=== PATIENT | male | born 1935 | race Two or more races ===

== ENCOUNTER 2017-06-17 10:53 | Outpatient (CLI) | payer OTHER ==
[~2017-06-17 10:53] MED LIST: ADVIL100 M1; BACLOFEN10 MG; CATAFLAM50 MG PO; DICLOFENAC POTA50 MG; DIPROSONE CR.45 GM TP; MEDROLPACK PO; NEURONTIN300 MG; NEURONTIN300 MG PO; ORPH100T PO; PREDNISOLO15 MG/5 ML PO; SEPTRA DS TABLE1 TAB PO; SKELAXIN800 MG PO; TIZANIDINE HCL4 MG
== END 2017-06-17 11:06 | disposition home or self-care (01) ==
LOC: MRI 10:53
DX: I63.9 Cerebral infarction, unspecified (principal)
CPT/HCPCS: 70552; A9579

== ENCOUNTER 2017-06-20 14:10 | Outpatient (CLI) | payer OTHER | END 2017-06-20 14:17 | disposition home or self-care (01) | LOC: NUCLEAR 14:10 | DX: M81.0 Age-related osteoporosis without current pathological fracture (principal) ==

== ENCOUNTER → 2017-07-05 | Emergency (ER) | payer OTHER ==
[~2017-07-05] VITALS: Ht 170.2 cm; Wt 73.5 kg
== END | disposition left against medical advice (07) ==
LOC: ER 20:23
DX: Z53.20 Procedure and treatment not carried out because of patient's decision for unspecified reasons (principal)

== ENCOUNTER 2017-08-01 13:30 | Outpatient (CLI) | payer OTHER | END 2017-08-01 13:44 | disposition home or self-care (01) | LOC: RAD 13:30 | DX: M54.2 Cervicalgia (principal); M15.0 Primary generalized (osteo)arthritis; M16.0 Bilateral primary osteoarthritis of hip; M54.5 Low back pain | CPT/HCPCS: 72141 ==

== ENCOUNTER 2017-08-07 19:25 | Emergency (ER) | payer OTHER ==
[~2017-08-07] VITALS: Ht 162.6 cm; Wt 63.5 kg
[2017-08-07] MEDS ORDERED: LISINOPRIL10 MG (19:47)
== END 2017-08-07 20:58 | disposition home or self-care (01) ==
LOC: ER 19:25
DX: R10.13 Epigastric pain (principal)

== ENCOUNTER 2017-08-27 14:05 | Inpatient (IN) | payer OTHER ==
[~2017-08-27] VITALS: Ht 170.2 cm; Wt 74.8 kg
[~2017-08-27 14:05] MED LIST changes: +LISINOPRIL10 MG
[2017-08-27] MEDS ORDERED: NEURONTIN300 MG PO (15:06)
[2017-09-01] MEDS ORDERED: LEVAQUIN750 MG PO (09:32)
[2017-09-01] MEDS ORDERED: XOPENEX0.63 MG/3 IH (09:34)
== END 2017-09-01 13:37 | DRG 195 ==
LOC: ER 14:05 → SEC-K 08-28 09:23 → MEDJ 08-28 09:23 → SEC-K 08-28 10:53 → MEDJ 08-28 14:29
PROC: 3E0F7GC Introduction of Other Therapeutic Substance into Respiratory Tract, Via Natural or Artificial Opening (ICD-10-PCS; principal; 2017-08-28)
DX: J18.0 Bronchopneumonia, unspecified organism (principal); D69.59 Other secondary thrombocytopenia; M54.12 Radiculopathy, cervical region; I95.89 Other hypotension; N18.1 Chronic kidney disease, stage 1

== ENCOUNTER 2017-10-01 13:08 | Emergency (ER) | payer OTHER ==
[~2017-10-01] VITALS: Ht 160 cm; Wt 72.6 kg
[~2017-10-01 13:08] MED LIST changes: +LEVAQUIN750 MG PO; +XOPENEX0.63 MG/3 IH
== END 2017-10-01 16:49 | disposition home or self-care (01) ==
LOC: ER 13:08
DX: S50.11XA Contusion of right forearm, initial encounter (principal); S50.12XA Contusion of left forearm, initial encounter; D69.49 Other primary thrombocytopenia; W22.8XXA Striking against or struck by other objects, initial encounter; Y93.89 Activity, other specified; Y92.89 Other specified places as the place of occurrence of the external cause; Y99.8 Other external cause status

== ENCOUNTER 2017-10-31 15:23 | Emergency (ER) | payer OTHER ==
[~2017-10-31] VITALS: Ht 165.1 cm; Wt 72.6 kg
== END 2017-10-31 16:56 | disposition home or self-care (01) ==
LOC: ER 15:23
DX: G62.9 Polyneuropathy, unspecified (principal); M47.896 Other spondylosis, lumbar region; M47.892 Other spondylosis, cervical region

== ENCOUNTER → 2017-11-28 | Outpatient (CLI) | payer OTHER | END | disposition home or self-care (01) | LOC: LAB 14:44 | DX: N40.1 Benign prostatic hyperplasia with lower urinary tract symptoms (principal); N52.8 Other male erectile dysfunction ==

== ENCOUNTER 2018-01-03 14:13 | Emergency (ER) | payer OTHER ==
[~2018-01-03] VITALS: Ht 167.6 cm; Wt 72.6 kg
[2018-01-03] MEDS ORDERED: ORPHENADRINE C100 MG PO (17:18)
[2018-01-03] MEDS ORDERED: KETO10TA2 PO (17:18)
== END 2018-01-03 17:38 | disposition home or self-care (01) ==
LOC: ER 14:13
DX: M50.33 Other cervical disc degeneration, cervicothoracic region (principal); M54.89 Other dorsalgia

== ENCOUNTER 2018-06-13 14:11 | Emergency (ER) | payer OTHER ==
[~2018-06-13] VITALS: Ht 165.1 cm; Wt 77.1 kg
[~2018-06-13 14:11] MED LIST changes: +KETO10TA2 PO; +ORPHENADRINE C100 MG PO
[2018-06-13] MEDS ORDERED: ALTACE5 MG (15:26)
== END 2018-06-13 17:18 | disposition home or self-care (01) ==
LOC: ER 14:11
DX: G89.21 Chronic pain due to trauma (principal); M54.2 Cervicalgia; M54.5 Low back pain; F45.42 Pain disorder with related psychological factors

== ENCOUNTER → 2018-07-08 | Emergency (ER) | payer OTHER ==
[~2018-07-08] VITALS: Ht 167.6 cm; Wt 74.8 kg
[~2018-07-08] MED LIST changes: +ALTACE5 MG
== END | disposition home or self-care (01) ==
LOC: ER 20:23
DX: M54.5 Low back pain (principal)

== ENCOUNTER 2018-07-21 11:30 | Emergency (ER) | payer OTHER ==
[~2018-07-21] VITALS: Ht 167.6 cm; Wt 74.8 kg
== END 2018-07-21 16:15 | disposition home or self-care (01) ==
LOC: ER 11:30
DX: B34.9 Viral infection, unspecified (principal)

== ENCOUNTER 2018-07-23 18:10 | Emergency (ER) | payer OTHER ==
[~2018-07-23] VITALS: Ht 167.6 cm; Wt 75.7 kg
== END 2018-07-23 18:58 | disposition home or self-care (01) ==
LOC: ER 18:10
DX: B34.9 Viral infection, unspecified (principal)

== ENCOUNTER 2018-07-26 16:24 | Emergency (ER) | payer OTHER ==
[~2018-07-26] VITALS: Ht 167.6 cm; Wt 72.6 kg
== END 2018-07-26 20:29 | disposition home or self-care (01) ==
LOC: ER 16:24
DX: D64.89 Other specified anemias (principal); D69.49 Other primary thrombocytopenia; M54.2 Cervicalgia

== ENCOUNTER 2018-08-01 12:57 | Emergency (ER) | payer OTHER ==
[~2018-08-01] VITALS: Ht 167.6 cm; Wt 72.6 kg
== END 2018-08-01 15:52 | disposition home or self-care (01) ==
LOC: ER 12:57
DX: B34.9 Viral infection, unspecified (principal)

== ENCOUNTER → 2018-08-10 | Emergency (ER) | payer OTHER ==
[~2018-08-10] VITALS: Ht 167.6 cm; Wt 77.1 kg
== END | disposition left against medical advice (07) ==
LOC: ER 18:18
DX: R05 Cough (principal)

== ENCOUNTER → 2018-08-10 | Emergency (ER) | payer OTHER ==
[~2018-08-10] VITALS: Ht 162.6 cm; Wt 77.1 kg
== END | disposition left against medical advice (07) ==
LOC: ER 14:01
DX: Z53.20 Procedure and treatment not carried out because of patient's decision for unspecified reasons (principal)

== ENCOUNTER 2018-08-12 16:35 | Emergency (ER) | payer OTHER ==
[~2018-08-12] VITALS: Ht 167.6 cm; Wt 72.6 kg
== END 2018-08-12 21:21 | disposition home or self-care (01) ==
LOC: ER 16:35
DX: J06.9 Acute upper respiratory infection, unspecified (principal)

== ENCOUNTER 2018-08-30 17:18 | Emergency (ER) | payer OTHER ==
[~2018-08-30] VITALS: Ht 167.6 cm; Wt 74.8 kg
== END 2018-08-30 20:09 | disposition home or self-care (01) ==
LOC: ER 17:18
DX: R53.81 Other malaise (principal)

== ENCOUNTER 2018-09-10 19:19 | Emergency (ER) | payer OTHER ==
[~2018-09-10] VITALS: Ht 167.6 cm; Wt 74.8 kg
== END 2018-09-11 00:10 | disposition home or self-care (01) ==
LOC: ER 19:19
DX: M13.862 Other specified arthritis, left knee (principal); M13.841 Other specified arthritis, right hand

== ENCOUNTER 2019-03-31 15:32 | Emergency (ER) | payer OTHER ==
[~2019-03-31] VITALS: Ht 167.6 cm; Wt 72.6 kg
[2019-03-31] MEDS ORDERED: CIDAFLEX TABLE1 EACH (15:43)
== END 2019-03-31 17:49 | disposition home or self-care (01) ==
LOC: ER 15:32
DX: M54.2 Cervicalgia (principal); M25.511 Pain in right shoulder; M25.512 Pain in left shoulder

== ENCOUNTER 2019-04-10 14:07 | Emergency (ER) | payer OTHER ==
[~2019-04-10] VITALS: Ht 167.6 cm; Wt 73.5 kg
[~2019-04-10 14:07] MED LIST changes: +CIDAFLEX TABLE1 EACH
== END 2019-04-10 16:20 | disposition home or self-care (01) ==
LOC: ER 14:07
DX: M54.2 Cervicalgia (principal); M62.838 Other muscle spasm

== ENCOUNTER 2019-07-15 16:03 | Emergency (ER) | payer OTHER ==
[~2019-07-15] VITALS: Ht 154.9 cm; Wt 72.6 kg
[~2019-07-15 16:03] MED LIST changes: +CEROVITE JR1 EACH; +TUSSIN15 MG/5 ML
== END 2019-07-15 17:01 | disposition home or self-care (01) ==
LOC: ER 16:03
DX: M12.88 Other specific arthropathies, not elsewhere classified, other specified site (principal); M54.2 Cervicalgia

== ENCOUNTER 2019-07-17 12:27 | Emergency (ER) | payer OTHER ==
[~2019-07-17] VITALS: Ht 167.6 cm; Wt 72.6 kg
[2019-07-17] MEDS ORDERED: NORFLEX100MG PO (13:03)
[2019-07-17] MEDS ORDERED: RAMIPRIL5 MG PO (13:03)
[2019-07-17] MEDS ORDERED: MELOXICAM7.5 MG PO (13:03)
[2019-07-17] MEDS ORDERED: GABAPENTIN600 MG PO (13:04)
[2019-07-17] MEDS ORDERED: KETOROLAC TROME10 MG PO (13:04)
[2019-07-17] MEDS ORDERED: NAPROXEN500 MG PO (13:04)
== END 2019-07-17 13:33 | disposition home or self-care (01) ==
LOC: ER 12:27
DX: M79.18 Myalgia, other site (principal)

== ENCOUNTER 2019-07-31 15:50 | Emergency (ER) | payer OTHER ==
[~2019-07-31] VITALS: Ht 167.6 cm; Wt 68.0 kg
[~2019-07-31 15:50] MED LIST changes: +GABAPENTIN600 MG PO; +KETOROLAC TROME10 MG PO; +MELOXICAM7.5 MG PO; +NAPROXEN500 MG PO; +NORFLEX100MG PO; +RAMIPRIL5 MG PO
== END 2019-07-31 20:01 | disposition home or self-care (01) ==
LOC: ER 15:50
DX: M54.12 Radiculopathy, cervical region (principal); M54.2 Cervicalgia

== ENCOUNTER 2019-08-11 15:55 | Emergency (ER) | payer OTHER ==
[~2019-08-11] VITALS: Ht 152.4 cm; Wt 72.6 kg
== END 2019-08-11 19:44 | disposition home or self-care (01) ==
LOC: ER 15:55
DX: M47.22 Other spondylosis with radiculopathy, cervical region (principal)

== ENCOUNTER 2019-08-12 17:08 | Emergency (ER) | payer OTHER ==
[~2019-08-12] VITALS: Ht 167.6 cm; Wt 72.6 kg
== END 2019-08-12 18:46 | disposition home or self-care (01) ==
LOC: ER 17:08
DX: R20.0 Anesthesia of skin (principal)

== ENCOUNTER 2019-09-11 14:44 | Emergency (ER) | payer OTHER ==
[~2019-09-11] VITALS: Ht 167.6 cm; Wt 72.6 kg
[2019-09-11] MEDS ORDERED: TAMSULOSIN HCL0.4 MG PO (15:17)
[2019-09-11] MEDS ORDERED: AZELASTINE137 MCG/0. NASAL (15:17)
== END 2019-09-11 17:15 | disposition home or self-care (01) ==
LOC: ER 14:44
DX: M54.2 Cervicalgia (principal); M54.5 Low back pain; M62.838 Other muscle spasm

== ENCOUNTER 2019-09-23 16:33 | Emergency (ER) | payer OTHER ==
[~2019-09-23] VITALS: Ht 167.6 cm; Wt 72.6 kg
[~2019-09-23 16:33] MED LIST changes: +AZELASTINE137 MCG/0. NASAL; +TAMSULOSIN HCL0.4 MG PO
[2019-09-23] MEDS ORDERED: VITAMIN D32400 UNIT/ MC (17:08)
[2019-09-23] MEDS ORDERED: NEURONTIN300 MG PO (17:08)
== END 2019-09-23 20:30 | disposition home or self-care (01) ==
LOC: ER 16:33
DX: M54.12 Radiculopathy, cervical region (principal); M47.892 Other spondylosis, cervical region

== ENCOUNTER 2019-09-28 12:02 | Emergency (ER) | payer OTHER ==
[~2019-09-28] VITALS: Ht 167.6 cm; Wt 72.6 kg
[~2019-09-28 12:02] MED LIST changes: +VITAMIN D32400 UNIT/ MC
== END 2019-09-28 13:10 | disposition home or self-care (01) ==
LOC: ER 12:02
DX: M89.48 Other hypertrophic osteoarthropathy, other site (principal)

== ENCOUNTER 2019-11-14 15:54 | Emergency (ER) | payer OTHER ==
[~2019-11-14] VITALS: Ht 167.6 cm; Wt 74.8 kg
== END 2019-11-14 18:26 | disposition home or self-care (01) ==
LOC: ER 15:54
DX: M50.323 Other cervical disc degeneration at C6-C7 level (principal)

== ENCOUNTER 2019-11-18 14:24 | Emergency (ER) | payer OTHER ==
[~2019-11-18] VITALS: Ht 170.2 cm; Wt 72.6 kg
[2019-11-18] MEDS ORDERED: 8 HOUR PAIN RE650 M1 PO (17:23)
[2019-11-18] MEDS ORDERED: HORIZANT300 MG PO (17:23)
[2019-11-18] MEDS ORDERED: ORPHENADRINE C100 MG PO (17:31)
== END 2019-11-18 17:56 | disposition home or self-care (01) ==
LOC: ER 14:24
DX: M54.89 Other dorsalgia (principal)

== ENCOUNTER 2019-12-07 15:17 | Outpatient (CLI) | payer OTHER ==
[~2019-12-07 15:17] MED LIST changes: +8 HOUR PAIN RE650 M1 PO; +HORIZANT300 MG PO
== END 2019-12-07 15:26 | disposition home or self-care (01) ==
LOC: RAD 15:17
PROVIDERS: ATTEND Orthopaedic Surgery
DX: M54.2 Cervicalgia (principal); M54.5 Low back pain

== ENCOUNTER 2019-12-23 21:58 | Emergency (ER) | payer OTHER ==
[~2019-12-23] VITALS: Ht 167.6 cm; Wt 72.6 kg
[2019-12-23] MEDS ORDERED: GABAPENTIN100 M2 PO (22:16)
[2019-12-23] MEDS ORDERED: TIZANIDINE HCL4 MG PO (22:16)
== END 2019-12-23 22:51 | disposition home or self-care (01) ==
LOC: ER 21:58
DX: M54.2 Cervicalgia (principal)

== ENCOUNTER 2019-12-26 14:36 | Emergency (ER) | payer OTHER ==
[~2019-12-26] VITALS: Ht 167.6 cm; Wt 72.6 kg
[~2019-12-26 14:36] MED LIST changes: +GABAPENTIN100 M2 PO; +TIZANIDINE HCL4 MG PO
== END 2019-12-26 20:55 | disposition home or self-care (01) ==
LOC: ER 14:36
DX: J06.9 Acute upper respiratory infection, unspecified (principal); Z03.818 Encounter for observation for suspected exposure to other biological agents ruled out; R05 Cough

== ENCOUNTER 2020-01-09 15:52 | Emergency (ER) | payer OTHER ==
[~2020-01-09] VITALS: Ht 162.6 cm; Wt 75.7 kg
[2020-01-09] MEDS ORDERED: 8 HOUR650 MG PO (18:06)
[2020-01-09] MEDS ORDERED: HORIZANT300 MG PO (18:06)
== END 2020-01-09 18:18 | disposition home or self-care (01) ==
LOC: ER 15:52
DX: M54.12 Radiculopathy, cervical region (principal)

== ENCOUNTER 2020-02-11 16:23 | Emergency (ER) | payer OTHER ==
[~2020-02-11] VITALS: Ht 167.6 cm; Wt 81.6 kg
[~2020-02-11 16:23] MED LIST changes: +8 HOUR650 MG PO
== END 2020-02-11 17:49 | disposition home or self-care (01) ==
LOC: ER 16:23
DX: M41.87 Other forms of scoliosis, lumbosacral region (principal); M13.88 Other specified arthritis, other site; M25.552 Pain in left hip

== ENCOUNTER 2020-04-10 15:42 | Outpatient (CLI) | payer OTHER | END 2020-04-10 15:49 | disposition home or self-care (01) | LOC: LAB 15:42 | PROVIDERS: ATTEND Specialist | DX: I70.0 Atherosclerosis of aorta (principal); E11.65 Type 2 diabetes mellitus with hyperglycemia; N39.0 Urinary tract infection, site not specified; E03.8 Other specified hypothyroidism; D51.0 Vitamin B12 deficiency anemia due to intrinsic factor deficiency; E78.2 Mixed hyperlipidemia; Z12.11 Encounter for screening for malignant neoplasm of colon; D64.89 Other specified anemias; D68.8 Other specified coagulation defects; N40.1 Benign prostatic hyperplasia with lower urinary tract symptoms; J45.998 Other asthma; I10 Essential (primary) hypertension ==

== ENCOUNTER 2020-04-16 16:01 | Emergency (ER) | payer OTHER ==
[~2020-04-16] VITALS: Ht 165.1 cm; Wt 71.2 kg
== END 2020-04-16 17:52 | disposition home or self-care (01) ==
LOC: ER 16:01
DX: M62.830 Muscle spasm of back (principal); M54.5 Low back pain

== ENCOUNTER 2020-05-18 17:47 | Emergency (ER) | payer OTHER ==
[~2020-05-18] VITALS: Ht 162.6 cm; Wt 72.6 kg
== END 2020-05-18 20:38 | disposition home or self-care (01) ==
LOC: ER 17:47
DX: M54.2 Cervicalgia (principal); M62.830 Muscle spasm of back

== ENCOUNTER 2020-06-11 18:49 | Emergency (ER) | payer OTHER ==
[~2020-06-11] VITALS: Ht 160 cm; Wt 68.0 kg
[2020-06-11] MEDS ORDERED: NEURONTIN300 MG (19:13)
[2020-06-11] MEDS ORDERED: MECLIZINE HCL25 MG PO (19:14)
== END 2020-06-11 20:46 | disposition home or self-care (01) ==
LOC: ER 18:49
DX: M54.2 Cervicalgia (principal); M25.512 Pain in left shoulder; M25.511 Pain in right shoulder; M62.838 Other muscle spasm; M62.830 Muscle spasm of back

== ENCOUNTER → 2020-06-23 16:57 | Outpatient (CLI) | payer OTHER ==
[~2020-06-23 16:57] MED LIST changes: +MECLIZINE HCL25 MG PO
== END | disposition home or self-care (01) ==
LOC: RAD 16:57
PROVIDERS: ATTEND Physical Medicine & Rehabilitation
DX: M54.5 Low back pain (principal); M54.2 Cervicalgia

== ENCOUNTER 2020-06-30 16:34 | Emergency (ER) | payer OTHER ==
[~2020-06-30] VITALS: Ht 170.2 cm; Wt 77.1 kg
[2020-06-30] MEDS ORDERED: ALTACE5 MG (16:57)
== END 2020-06-30 20:54 | disposition home or self-care (01) ==
LOC: ER 16:34
DX: M41.86 Other forms of scoliosis, lumbar region (principal); M41.82 Other forms of scoliosis, cervical region

== ENCOUNTER 2020-07-09 13:57 | Emergency (ER) | payer OTHER ==
[~2020-07-09] VITALS: Ht 175.3 cm; Wt 74.8 kg
[2020-07-09] MEDS ORDERED: ORPHENADRINE C100 MG PO (18:17)
[2020-07-09] MEDS ORDERED: KETO10TA2 PO (18:17)
== END 2020-07-09 18:35 | disposition home or self-care (01) ==
LOC: ER 13:57
DX: M54.2 Cervicalgia (principal); M62.838 Other muscle spasm

== ENCOUNTER 2020-07-23 14:04 | Emergency (ER) | payer OTHER ==
[~2020-07-23] VITALS: Ht 167.6 cm; Wt 72.6 kg
[2020-07-23] MEDS ORDERED: SIMVASTATIN5 MG (15:14)
== END 2020-07-23 17:45 | disposition home or self-care (01) ==
LOC: ER 14:04
DX: M54.2 Cervicalgia (principal); M54.5 Low back pain

== ENCOUNTER 2020-08-17 13:07 | Emergency (ER) | payer OTHER ==
[~2020-08-17] VITALS: Ht 167.6 cm; Wt 77.1 kg
[~2020-08-17 13:07] MED LIST changes: +SIMVASTATIN5 MG
[2020-08-17] MEDS ORDERED: DICLOFENAC SODI75 MG PO (16:12)
[2020-08-17] MEDS ORDERED: NORFLEX100MG PO (16:12)
[2020-09-03] MEDS ORDERED: DICLOFENAC35 MG PO (16:33)
[2020-09-03] MEDS ORDERED: ULTRAM50 MG PO (16:33)
== END 2020-08-17 16:35 | disposition home or self-care (01) ==
LOC: ER 13:07
DX: M54.2 Cervicalgia (principal); M62.838 Other muscle spasm

== ENCOUNTER 2020-08-29 18:16 | Emergency (ER) | payer OTHER ==
[~2020-08-29] VITALS: Ht 167.6 cm; Wt 77.1 kg
[~2020-08-29 18:16] MED LIST changes: +DICLOFENAC SODI75 MG PO
[2020-09-03] MEDS ORDERED: DICLOFENAC35 MG PO (16:33)
[2020-09-03] MEDS ORDERED: ULTRAM50 MG PO (16:33)
== END 2020-08-29 20:01 | disposition home or self-care (01) ==
LOC: ER 18:16
DX: M47.896 Other spondylosis, lumbar region (principal)

== ENCOUNTER → 2020-09-03 | Emergency (ER) | payer OTHER ==
[~2020-09-03] VITALS: Ht 167.6 cm; Wt 70.3 kg
[~2020-09-03] MED LIST changes: +DICLOFENAC35 MG PO; +GABAPENTIN400 MG PO; +GRALISE600 MG PO; +MULTI VITAMIN1 EACH PO; +NABUMETONE500 MG; +NAPROXEN375 MG PO; +ULTRAM50 MG PO
== END | disposition home or self-care (01) ==
LOC: ER 16:05
DX: M54.2 Cervicalgia (principal); M54.5 Low back pain

== ENCOUNTER → 2020-09-12 | Emergency (ER) | payer OTHER ==
[~2020-09-12] VITALS: Ht 162.6 cm; Wt 70.3 kg
== END | disposition home or self-care (01) ==
LOC: ER 18:30
DX: M47.892 Other spondylosis, cervical region (principal)

== ENCOUNTER 2020-09-23 19:22 | Emergency (ER) | payer OTHER ==
[~2020-09-23] VITALS: Ht 170.2 cm; Wt 77.1 kg
[~2020-09-23 19:22] MED LIST changes: -GABAPENTIN400 MG PO; -GRALISE600 MG PO; -MULTI VITAMIN1 EACH PO; -NABUMETONE500 MG; -NAPROXEN375 MG PO
[2020-09-23] MEDS ORDERED: BACLOFEN10 MG (19:49)
[2020-09-23] MEDS ORDERED: NABUMETONE500 MG (19:49)
== END 2020-09-23 21:11 | disposition home or self-care (01) ==
LOC: ER 19:22
DX: M54.2 Cervicalgia (principal); M13.88 Other specified arthritis, other site; R10.13 Epigastric pain

== ENCOUNTER → 2020-10-25 | Emergency (ER) | payer OTHER ==
[~2020-10-25] VITALS: Ht 170.2 cm; Wt 74.8 kg
[~2020-10-25] MED LIST changes: +GABAPENTIN400 MG PO; +GRALISE600 MG PO; +MULTI VITAMIN1 EACH PO; +NABUMETONE500 MG; +NAPROXEN375 MG PO
== END | disposition left against medical advice (07) ==
LOC: ER 16:43
DX: M54.2 Cervicalgia (principal); R20.0 Anesthesia of skin; R20.2 Paresthesia of skin

== ENCOUNTER 2020-11-23 18:26 | Emergency (ER) | payer OTHER ==
[~2020-11-23] VITALS: Ht 170.2 cm; Wt 79.4 kg
[~2020-11-23 18:26] MED LIST changes: -GABAPENTIN400 MG PO; -GRALISE600 MG PO; -MULTI VITAMIN1 EACH PO; -NAPROXEN375 MG PO
== END 2020-11-23 20:39 | disposition left against medical advice (07) ==
LOC: ER 18:26
DX: Z53.20 Procedure and treatment not carried out because of patient's decision for unspecified reasons (principal)

== ENCOUNTER 2020-11-24 11:12 | Emergency (ER) | payer OTHER ==
[~2020-11-24] VITALS: Ht 167.6 cm; Wt 0.5 kg
== END 2020-11-24 15:23 | disposition home or self-care (01) ==
LOC: ER 11:12
DX: M54.89 Other dorsalgia (principal)

== ENCOUNTER 2020-12-06 16:00 | Emergency (ER) | payer OTHER ==
[~2020-12-06] VITALS: Ht 170.2 cm; Wt 74.4 kg
[2020-12-06] MEDS ORDERED: GRALISE600 MG PO (16:10)
== END 2020-12-06 17:52 | disposition home or self-care (01) ==
LOC: ER 16:00
DX: M54.2 Cervicalgia (principal); M54.5 Low back pain

== ENCOUNTER 2020-12-11 15:37 | Emergency (ER) | payer OTHER ==
[~2020-12-11] VITALS: Ht 170.2 cm; Wt 77.1 kg
[~2020-12-11 15:37] MED LIST changes: +GRALISE600 MG PO
[2020-12-11] MEDS ORDERED: ALTACE5 MG (16:20)
[2020-12-11] MEDS ORDERED: GABAPENTIN400 MG PO (16:21)
[2020-12-11] MEDS ORDERED: MULTI VITAMIN1 EACH PO (19:14)
== END 2020-12-11 19:20 | disposition home or self-care (01) ==
LOC: ER 15:37
DX: S50.01XA Contusion of right elbow, initial encounter (principal); R53.83 Other fatigue; W18.09XA Striking against other object with subsequent fall, initial encounter; Y93.89 Activity, other specified; Y92.811 Bus as the place of occurrence of the external cause; Y99.8 Other external cause status; Z03.818 Encounter for observation for suspected exposure to other biological agents ruled out

== ENCOUNTER 2020-12-24 17:28 | Emergency (ER) | payer OTHER ==
[~2020-12-24] VITALS: Ht 167.6 cm; Wt 69.9 kg
[~2020-12-24 17:28] MED LIST changes: +GABAPENTIN400 MG PO; +MULTI VITAMIN1 EACH PO
[2020-12-24] MEDS ORDERED: NAPROXEN375 MG PO (20:16)
[2020-12-24] MEDS ORDERED: MEDROLPACK PO (20:16)
[2020-12-24] MEDS ORDERED: NORFLEX100MG PO (20:16)
== END 2020-12-24 20:22 | disposition home or self-care (01) ==
LOC: ER 17:28
DX: M50.30 Other cervical disc degeneration, unspecified cervical region (principal); M54.2 Cervicalgia

== ENCOUNTER 2020-12-26 15:19 | Outpatient (CLI) | payer OTHER | END 2020-12-26 15:28 | disposition home or self-care (01) | LOC: LAB 15:19 | DX: B96.0 Mycoplasma pneumoniae [M. pneumoniae] as the cause of diseases classified elsewhere (principal); A90 Dengue fever [classical dengue]; J06.9 Acute upper respiratory infection, unspecified; J00 Acute nasopharyngitis [common cold] ==

== ENCOUNTER → 2020-12-26 | Outpatient (CLI) | payer OTHER ==
[~2020-12-26] MED LIST changes: +NAPROXEN375 MG PO
== END | disposition home or self-care (01) ==
LOC: RAD 12:21
PROVIDERS: ATTEND Physical Medicine & Rehabilitation Pediatric Rehabilitation Medicine
DX: M54.12 Radiculopathy, cervical region (principal); M75.111 Incomplete rotator cuff tear or rupture of right shoulder, not specified as traumatic

== ENCOUNTER 2021-01-25 13:08 | Outpatient (CLI) | payer OTHER | END 2021-01-25 13:11 | disposition home or self-care (01) | LOC: NUCLEAR 13:08 | DX: M81.0 Age-related osteoporosis without current pathological fracture (principal) ==

== ENCOUNTER 2021-01-27 15:16 | Emergency (ER) | payer OTHER ==
[~2021-01-27] VITALS: Ht 167.6 cm; Wt 74.8 kg
[2021-01-27] MEDS ORDERED: ONE DAILY MEN'1 EACH PO (16:50)
== END 2021-01-27 17:05 | disposition home or self-care (01) ==
LOC: ER 15:16
DX: M54.2 Cervicalgia (principal); M25.512 Pain in left shoulder; M25.511 Pain in right shoulder; M54.89 Other dorsalgia

== ENCOUNTER 2021-03-26 17:27 | Outpatient (CLI) | payer OTHER ==
[~2021-03-26 17:27] MED LIST changes: +ONE DAILY MEN'1 EACH PO
== END 2021-03-26 17:32 | disposition home or self-care (01) ==
LOC: RAD 17:27 → LAB 17:27 → RAD 17:32
PROVIDERS: ATTEND Physical Medicine & Rehabilitation
DX: M54.59 Other low back pain (principal); M54.2 Cervicalgia

== ENCOUNTER 2021-07-24 13:22 | Outpatient (CLI) | payer OTHER | END 2021-07-24 13:33 | disposition home or self-care (01) | LOC: SONOGRAMA 13:22 | PROVIDERS: ATTEND Specialist | DX: M75.100 Unspecified rotator cuff tear or rupture of unspecified shoulder, not specified as traumatic (principal) ==

== ENCOUNTER 2021-08-02 11:21 | Outpatient (CLI) | payer OTHER | END 2021-08-02 11:30 | disposition home or self-care (01) | LOC: TOM 11:21 | PROVIDERS: ATTEND Internal Medicine | DX: G45.9 Transient cerebral ischemic attack, unspecified (principal); F02.80 Dementia in other diseases classified elsewhere, unspecified severity, without behavioral disturbance, psychotic disturbance, mood disturbance, and anxiety ==

== ENCOUNTER 2021-08-17 17:30 | Emergency (ER) | payer OTHER ==
[~2021-08-17] VITALS: Ht 152.4 cm; Wt 85.7 kg
== END 2021-08-17 18:10 | disposition home or self-care (01) ==
LOC: ER 17:30
DX: S50.812A Abrasion of left forearm, initial encounter (principal); Y04.0XXA Assault by unarmed brawl or fight, initial encounter; Y93.9 Activity, unspecified; Y92.63 Factory as the place of occurrence of the external cause

== ENCOUNTER → 2021-08-24 | Emergency (ER) | payer OTHER | END | disposition left against medical advice (07) | LOC: ER 13:58 | DX: Z53.21 Procedure and treatment not carried out due to patient leaving prior to being seen by health care provider (principal) ==

== ENCOUNTER 2021-09-05 13:35 | Outpatient (CLI) | payer OTHER | END 2021-09-05 13:44 | disposition home or self-care (01) | LOC: MRI 13:35 | DX: M19.90 Unspecified osteoarthritis, unspecified site (principal); M51.36 Other intervertebral disc degeneration, lumbar region; G60.9 Hereditary and idiopathic neuropathy, unspecified | CPT/HCPCS: 72148 ==

== ENCOUNTER 2021-10-16 12:18 | Emergency (ER) | payer OTHER ==
[~2021-10-16] VITALS: Ht 160 cm; Wt 70.3 kg
== END 2021-10-16 15:13 | disposition home or self-care (01) ==
LOC: ER 12:18
DX: M54.50 Low back pain, unspecified (principal); M41.20 Other idiopathic scoliosis, site unspecified; I10 Essential (primary) hypertension